=== PATIENT | female | born 1965 | race African-American/Black ===

== ENCOUNTER 2019-05-15 06:17 | Day surgery (SDC) | payer MEDICAID, BC ==
[2019-05-15] MEDS ORDERED: PROPOFOL 40 ML (08:20)
== END 2019-05-15 11:49 | disposition home or self-care (01) ==
LOC: GIL 06:17
DX: Z12.11 Encounter for screening for malignant neoplasm of colon (principal); K64.8 Other hemorrhoids; K29.50 Unspecified chronic gastritis without bleeding; K20.8 Other esophagitis
CPT/HCPCS: 43239; 88305; 88312